=== PATIENT | male | born 1990 | race African-American/Black ===

== ENCOUNTER 2017-03-13 16:12 | Emergency (ER) | payer MEDICAID ==
[~2017-03-13] VITALS: Ht 200.7 cm; Wt 72.6 kg
[2017-03-13 16:20] VITALS: BP 138/92
[2017-03-13 16:46] VITALS: BP 138/92
--- NOTE | 2017-03-13 17:09 | Emergency Room Report ---
History of Present Illness General Chief Complaint: Laceration Source: Patient Present Illness HPI The patient is a 27-year-old male presenting with police officers in custody for suture removal. The patient states that he sustained facial lacerations 1 month prior and had sutures placed at [facility] but did not followup. he denies any complications or pain. He denies any symptoms at all Patient History Past Medical History: see triage record Pertinent Family History: none Reviewed Nursing Documentation: PMH: Agreed, PSxH: Agreed Nursing Documentation-PMH Past Medical History: No Stated History Review of Systems All Other Systems: negative except mentioned in HPI Physical Exam Vital Signs Date Time Temp Pulse Resp B/P (MAP) Pulse Ox O2 Delivery O2 Flow Rate FiO2 03/13/17 16:18 97.5 98 14 143/98 99 Room Air Sp02 EP Interpretation: reviewed, normal General Appearance: no apparent distress, alert, GCS 15, non-toxic Head: normocephalic, atraumatic Eyes: bilateral eye normal inspection, bilateral eye PERRL ENT: hearing grossly normal, normal pharynx, no angioedema, normal voice Neck: full range of motion, supple/symm/no masses Respiratory: chest non-tender, lungs clear, normal breath sounds, speaking full sentences Cardiovascular #1: regular rate, rhythm, no edema Musculoskeletal: back normal, gait/station normal, normal range of motion, non- tender Neurologic: alert, oriented x3, responsive, motor strength/tone normal, sensory intact, speech normal Psychiatric: judgement/insight normal, memory normal, mood/affect normal, no suicidal/homicidal ideation Skin: normal color, no rash, normal turgor, other - Sutures above R eyebrow and below L eye are intact. Wound is healed Lymphatic: no adenopathy Medical Decision Making PA Attestation Dr. Higuera is my supervising physician. Patient management was discussed with my supervising physician Diagnostic Impression: Primary Impression: Visit for suture removal ER Course The patient is a 27-year-old male presenting with police officers in custody for suture removal Differential diagnosis considered: Wound infection, nonhealing wound, cellulitis , abscess Physical exam: Afebrile. No apparent distress Head is normocephalic atraumatic PERRL. EOMI Sutures are in place above the right eye and below left eye. Wound is well approximated and well-healed. No erythema. Nontender Suture removal: all simple interrupted sutures were removed without complication. No bleeding or discharge. Wound is well approximated. No surrounding erythema. The patient is medically cleared. ER precautions given Last Vital Signs Date Time Temp Pulse Resp B/P (MAP) Pulse Ox O2 Delivery O2 Flow Rate FiO2 03/13/17 16:46 97.8 82 16 138/92 99 Room Air Status: improved Disposition: D/C TO [facility] IN [facility] Condition: Improved Referrals: NOT CHOSEN IPA/MD,REFERRING (PCP) Departure Forms: Prison Clearance Patient Instructions: Suture Removal, Care After Additional Instructions: I discussed my findings with the patient. All questions and concerns have been answered. Treatment and medication compliance have been addressed. Please seek medical attention if you notice fever, rash, discharge from the wounds, or for any reason PADMINI KWON Mar 13, 2017 17:09
== END 2017-03-13 16:45 ==
LOC: EMR 16:40
DX: S01.111D Laceration without foreign body of right eyelid and periocular area, subsequent encounter (principal); S01.112D Laceration without foreign body of left eyelid and periocular area, subsequent encounter; Z48.02 Encounter for removal of sutures
CPT/HCPCS: 99283